=== PATIENT | male | born 1980 | race Caucasian/White ===

== ENCOUNTER 2019-01-08 14:02 | Emergency (ER) | payer BC ==
--- OUTSIDE RECORDS SUMMARY | 2019-01-08 15:42 | XMS REPORT | Continuity of Care Document ---
:1980 External Reference #:[id number] Author Name Kevin Pereyra PA Address [address], [address] [place] [address] Care Team Providers Name Role Phone Efrain Durán M.D. - Urology Care Team Information Machine Pecan Picker [phone] Baltazar De La Cruz MD - Family Medicine Care Team Information Machine Pecan Picker [phone] Problems Active Problems Provider Date Family planning education, guidance, and Efrain Durán M.D. Onset: 2018 counseling Social History Type Date Description Comments Sex Unknown ETOH Use Denies alcohol use Tobacco Use Start: Unknown Patient denies history of smoking Recreational Drug Use Denies Drug Use Smoking Status Reviewed: 12/16/18 Patient denies history of smoking Allergies, Adverse Reactions, Alerts Description No Known Drug Allergies Medications Description No Active Medications Immunizations Description No Information Available Vital Signs Date Vital Result Comment 12/29/2018 2:28pm BP Systolic 127 mmHg BP Diastolic 76 mmHg Body Temperature 97.8 F Heart Rate 71 /min Respiratory Rate 16 /min Height 71 inches 5'11" Weight 181.38 lb BMI (Body Mass Index) 25.3 kg/m2 BSA (Body Surface Area) 2.02 m2 [place] body weight in kilograms 78 kg O2 % BldC Oximetry 98 % Pain Level 0 12/13/2018 2:15pm BP Systolic 119 mmHg BP Diastolic 71 mmHg Body Temperature 97.8 F Heart Rate 74 /min Respiratory Rate 18 /min Height 71 inches 5'11" Weight 173.00 lb BMI (Body Mass Index) 24.1 kg/m2 BSA (Body Surface Area) 1.98 m2 [place] body weight in kilograms 78 kg O2 % BldC Oximetry 96 % Pain Level 0 Results Description No Information Available Procedures Date Code Description Status 12/13/2018 53544 Vasectomy, unilat or bilat Completed Medical Devices Description No Information Available Encounters Type Date Location Provider Dx Diagnosis Office Visit 11/21/2018 Urology Efrain Durán Z30.2 Encounter for 10:45a M.DJamie sterilization Assessments Date Code Description Provider 12/29/2018 Z30.2 Encounter for sterilization Kevin Pereyra PA 12/13/2018 Z30.2 Encounter for sterilization Efrain Durán M.D. 11/21/2018 Z30.2 Encounter for sterilization Efrain Durán M.D. Plan of Treatment No Information Available Functional Status Description No Information Available Mental Status Description No Information Available Referrals Description No Information Available
--- OUTSIDE RECORDS SUMMARY | 2019-01-08 15:42 | XMS REPORT | Continuity of Care Document ---
:1980 External Reference #:[id number] Author Name Efrain Durán M.D. Address [address] [address] Care Team Providers Name Role Phone Efrain Durán M.D. - Urology Care Team Information Director Records Management [phone] Baltazar De La Cruz MD - Family Medicine Care Team Information Director Records Management Problems Active Problems Provider Date Family planning education, guidance, and Efrain Durán M.D. Onset: 2018 counseling Social History Type Date Description Comments Sex Unknown ETOH Use Denies alcohol use Tobacco Use Start: Unknown Patient denies history of smoking Recreational Drug Use Denies Drug Use Smoking Status Reviewed: 11/10/18 Patient denies history of smoking Allergies, Adverse Reactions, Alerts Description No Known Drug Allergies Medications Description No Active Medications Immunizations Description No Information Available Vital Signs Date Vital Result Comment 11/21/2018 10:45am BP Systolic 115 mmHg BP Diastolic 75 mmHg Body Temperature 99.0 F Heart Rate 74 /min Respiratory Rate 18 /min Height 71 inches 5'11" Weight 177.50 lb BMI (Body Mass Index) 24.8 kg/m2 BSA (Body Surface Area) 2.00 m2 [place] body weight in kilograms 78 kg O2 % BldC Oximetry 99 % Pain Level 0 Results Description No Information Available Procedures Description No Information Available Medical Devices Description No Information Available Encounters Type Date Location Provider Dx Diagnosis Office Visit 11/21/2018 Urology Efrain Durán Z30.2 Encounter for 10:45a M.D. sterilization Assessments Date Code Description Provider 11/21/2018 Z30.2 Encounter for sterilization Efrain Durán M.D. Plan of Treatment No Information Available Functional Status Description No Information Available Mental Status Description No Information Available Referrals Description No Information Available
[2019-01-08 16:02] VITALS: BP 122/83
--- NOTE | 2019-01-08 16:12 | UC ---
General HPI - HPI Summary HPI Summary: 38-year-old male presents with complaints of 3 days of progressively worsening left shoulder pain. Describes pain as sharp and achy. Pain will sometimes radiate up into the left side of his neck. Pain worsens with certain movements. No known injury however patient does report a tick bite approximately 2 weeks ago. States he was unsure how long the tick was attached. He does not believe the tick wasn't engorged. Patient states he has also been experiencing mild headache and some increased fatigue over the last several days. Denies fever, chills, rash, chest pain, palpitations, shortness of breath, diaphoresis, weakness, lightheadedness, nausea, or vomiting. - History of Current Complaint Chief Complaint: UCUpperExtremity Stated Complaint: SKIN COMPLAINT, STIFF NECK,FATIGUE Time Seen by Provider: 01/08/19 15:51 Hx Obtained From: Patient Pain Intensity: 2 - Allergy/Home Medications Allergies/Adverse Reactions: Allergies Allergy/AdvReac Type Severity Reaction Status Date / Time No Known Allergies Allergy Verified 01/08/19 16:02 Home Medications: Home Medications Acetaminophen [Acetaminophen Extra Strength] 1,000 mg PO Q24H PRN 01/08/19 [ History Confirmed 01/08/19] PMH/Surg Hx/FS Hx/Imm Hx Previously Healthy: Yes - Denies significant PMH - Surgical History Surgical History: Yes Surgery Procedure, Year, and Place: appy - Family History Known Family History: Positive: Non-Contributory - Social History Occupation: Employed Full-time Lives: With Family Alcohol Use: Occasionally Substance Use Type: None Smoking Status (MU): Never Smoked Tobacco Review of Systems All Other Systems Reviewed And Are Negative: Yes Constitutional: Negative: Fever, Chills Skin: Negative: Rash Respiratory: Negative: Shortness Of Breath, Cough Cardiovascular: Negative: Palpitations, Chest Pain Gastrointestinal: Negative: Abdominal Pain, Vomiting, Nausea Genitourinary: Positive: Negative Musculoskeletal: Positive: Arthralgia, Myalgia Neurological: Positive: Headache Physical Exam - Summary Physical Exam Summary: GENERAL APPEARANCE: Well developed, well nourished, alert and cooperative, and appears to be in no acute distress. EYES: Conjunctiva clear. No drainage. EARS: External auditory canals and tympanic membranes clear, hearing grossly intact. NOSE: No nasal discharge. THROAT: Pharynx normal. No tonsilar inflammation, swelling, exudate, or lesions. Uvula midline. NECK: Neck supple, non-tender without lymphadenopathy. Full ROM. No nuchal rigidity. CARDIAC: Normal S1 and S2. No S3, S4 or murmurs. Rhythm is regular. There is no peripheral edema, cyanosis or pallor. Extremities are warm and well perfused. Capillary refill is less than 2 seconds. Peripheral pulses intact. LUNGS: Clear to auscultation without rales, rhonchi, wheezing or diminished breath sounds. ABDOMEN: Positive bowel sounds. Soft, nondistended, nontender. No guarding or rebound. No masses or hepatosplenomegally. MUSKULOSKELETAL: Normal muscular development. Normal gait. EXTREMITIES: Mild generalized tenderness of the left anterior shoulder, left trapezius, and upper left arm with palpation. Full ROM although pain with abduction. Circulation and sensation intact. SKIN: Skin normal color, texture and turgor with no lesions or eruptions. Triage Information Reviewed: Yes Vital Signs: Initial Vital Signs Temp 99.8 F 01/08/19 15:49 Pulse 86 01/08/19 15:49 Resp 20 01/08/19 15:49 BP 122/83 01/08/19 15:49 Pulse Ox 98 01/08/19 15:49 Vital Signs Reviewed: Yes Course/Dx - Course Course Of Treatment: 38-year-old male presents with complaints of 3 days of progressively worsening left shoulder pain. Describes pain as sharp and achy. Pain will sometimes radiate up into the left side of his neck. Pain worsens with certain movements. No known injury however patient does report a tick bite approximately 2 weeks ago. States he was unsure how long the tick was attached. He does not believe the tick wasn't engorged. Patient states he has also been experiencing mild headache and some increased fatigue over the last several days. Denies fever, chills, rash, chest pain, palpitations, shortness of breath, diaphoresis, weakness, lightheadedness, nausea, or vomiting. Afebrile. Vital signs stable. Patient had mild generalized tenderness of the left anterior shoulder, left trapezius, and upper left arm with palpation with full ROM although reported pain with abduction. Remainder of exam was unremarkable. Discussed with patient that with his recent history of tick bite and other symptoms I am recommending that we test for Lyme and begin treatment with doxycycline 100 mg twice a day 14 days pending the test results. We did discuss that based on the time frame there is a good chance that his Lyme test could be negative and this still be Lyme therefore he is to follow-up with his primary care provider in one week for reevaluation of symptoms and possible retesting at that time. Anticipatory guidance and warning symptoms were reviewed with the patient. Verbalizes understanding and agrees with plan of care. - Differential Dx - Multi-Symptom Differential Diagnoses: Other - Tick born illness, influenza, viral syndrome - Diagnoses Provider Diagnosis: Fatigue, Myalgia, Tick bite of left thigh Discharge ED - Sign-Out/Discharge Documenting (check all that apply): Patient Departure All imaging exams completed and their final reports reviewed: No Studies - Discharge Plan Condition: Stable Disposition: HOME Prescriptions: Doxycycline Hyclate 100 mg PO BID #28 tablet Patient Education Materials: Lyme Disease (ED) Referrals: Baltazar De aL Cruz MD [Primary Care Provider] - 1 Week Additional Instructions: Based on your symptoms and history of recent tick bite we will start to on an antibiotic to treat for possible Lyme disease. Start doxycycline 100 mg twice daily for 2 weeks. Do not drink milk, eat milk products, or takes supplements containing calcium for at least 2 hours before after taking this medication as the calcium can affect the absorption. This antibiotic will also make you more sensitive to the sunlight therefore it is recommended that you try to avoid sun exposure while taking. If you must be outdoors take appropriate precautions including sunscreen, long sleeves, and hat. We will test you for Lyme disease today however it is possible that this test will be negative and you still have Lyme disease therefore you will need to continue the antibiotics and follow-up with your primary care provider in one week for reevaluation of symptoms and possible retesting. Take ibuprofen (Advil, Motrin) or naproxen (Aleve) according to directions as needed for the aches and pains. Seek immediate medical attention in the emergency room if you have worsening pain, chest pain, feeling as if her heart is racing or skipping beats, become weak or lightheaded, shortness of breath, breaking out into cold sweats, develop nausea vomiting, or have any worsening of symptoms. - Billing Disposition and Condition Condition: STABLE Disposition: Home
== END 2019-01-08 16:59 | disposition home or self-care (01) ==
LOC: UCCORT 14:02
DX: S70.362A Insect bite (nonvenomous), left thigh, initial encounter (principal); M79.10 Myalgia, unspecified site; R53.83 Other fatigue; W57.XXXA Bitten or stung by nonvenomous insect and other nonvenomous arthropods, initial encounter; Y92.9 Unspecified place or not applicable
CPT/HCPCS: 36415; 86618; 99213; G0463